=== PATIENT | male | born 1945 ===

== ENCOUNTER 2020-03-23 16:30 | Outpatient (CLI) | payer MEDICARE | END 2020-03-23 16:31 | disposition home or self-care (01) | LOC: SLEEPLAB 16:30 | DX: G47.33 Obstructive sleep apnea (adult) (pediatric) (principal); J44.9 Chronic obstructive pulmonary disease, unspecified; I48.91 Unspecified atrial fibrillation; G47.00 Insomnia, unspecified; R09.02 Hypoxemia | CPT/HCPCS: 95806 ==